=== PATIENT | male | born 1970 | race Caucasian/White ===

== ENCOUNTER 2020-07-13 10:02 | Day surgery (SDC) | payer BC ==
[2020-07-11 15:04] VITALS: BMI 26.2
[~2020-07-13 10:02] MED LIST: LACTATED RINGERS 1,000 ML IV SCH
[2020-07-13] MEDS ORDERED: LIDOCAINE 1% (10MG/ML) FOR IV START INTRADERMA ONE (10:30)
[2020-07-13 10:36] VITALS: RESP 16; TEMP 98
[2020-07-13] MEDS ORDERED: PROPOFOL 10 MG/ML 20 ML VIAL IV ONE (10:41)
--- NOTE | 2020-07-13 10:43 | P.GSHP ---
History of Present Illness H&P Date: 07/13/20 49-year-old male presents today for screening colonoscopy. He has not had a colonoscopy previously. Denies any blood in stool. Denies any family history of colon cancer. - Review of Systems All systems: negative Past Medical History Past Medical History: Hyperlipidemia History of Any Multi-Drug Resistant Organisms: None Reported Past Surgical History: No Surgical Hx Reported Past Anesthesia/Blood Transfusion Reactions: No Reported Reaction Smoking Status: Never smoker - Past Family History Mother Family Medical History: No Reported History Medications and Allergies Home Medications Medication Instructions Recorded Confirmed Type Ergocalciferol [Vitamin D2 (1250 1,250 mcg PO MO 07/11/20 07/11/20 History Mcg = 97908 Iu)] Rosuvastatin Calcium 10 mg PO MO 07/11/20 07/11/20 History Allergies Allergy/AdvReac Type Severity Reaction Status Date / Time Penicillins Allergy Unknown Verified 07/13/20 10:13 Childhood Surgical - Exam Osteopathic Statement: *. No significant issues noted on an osteopathic structural exam other than those noted in the History and Physical/Consult. Vital Signs Temp Pulse Resp BP Pulse Ox 98.0 F 73 16 133/76 97 07/13/20 10:25 07/13/20 10:25 07/13/20 10:25 07/13/20 10:25 07/13/20 10:25 - General well nourished, no distress - Eyes normal ocular movement - ENT no hearing loss - Neck trachea midline - Respiratory normal respiratory effort - Abdomen Abdomen: soft Assessment and Plan Plan: 49-year-old male presents for screen colonoscopy. Risks, benefits and alternatives were provided to the patient. He did provide consent prior to attending the endoscopy suite.
--- NOTE | 2020-07-13 11:06 | P.PCN ---
Date of Procedure: 07/13/20 Preoperative Diagnosis: Screening Postoperative Diagnosis: Rectal polyp Procedure(s) Performed: Colonoscopy with hot snare polypectomy Anesthesia: MAC Surgeon: Denise Alexander Pathology: other (Rectal polyp) Condition: stable Disposition: same day Indications for Procedure: 49-year-old male presents today for screening colonoscopy. Denies any history of blood in his stool and denies any family history of colon cancer. He has never had a colonoscopy. Risks, benefits and alternatives were provided to the patient. He did provide consent prior to attending the endoscopy suite Operative Findings: Rectal polyp Description of Procedure: The patient was brought into the endoscopy suite. He was then placed in left lateral decubitus position and adequate sedation was achieved using conscious sedation. A digital rectal exam was performed and mild internal hemorrhoids were palpated. An endoscope was then placed in the rectum and advanced to the cecum as identified by landmarks including the appendiceal orifice and the ileocecal valve. The prep was good. The colonoscope was then slowly withdrawn, examining for any mucosal abnormalities. The cecum, ascending, transverse, descending and sigmoid colon were visualized adequately. There were no large neoplastic lesions throughout the colon. A small polyp was noted in the rectum. This was removed with hot snare polypectomy. There was no evidence of diverticulosis. Retroflexion was performed in the rectum and internal hemorrhoids were visible. Excess air was removed, the colonoscope withdrawn and the procedure terminated. The patient was then transferred to the recovery unit in stable condition. Repeat colonoscopy should be performed in 5 years.
[2020-07-13 11:26] VITALS: BP 121/82; PULSE 67
== END 2020-07-13 11:38 | disposition home or self-care (01) ==
LOC: ORWHC2ENDO 10:02
PROVIDERS: ATTEND Surgery
DX: Z12.11 Encounter for screening for malignant neoplasm of colon (principal); K62.1 Rectal polyp; K64.8 Other hemorrhoids; E78.5 Hyperlipidemia, unspecified; Z88.0 Allergy status to penicillin; Z79.899 Other long term (current) drug therapy
CPT/HCPCS: 88305; 45385; J2704

== ENCOUNTER → 2021-04-16 | Outpatient (CLI) | payer BC | END | disposition home or self-care (01) | LOC: LABPRL 10:10 → EDSTATUS 13:21 | PROVIDERS: ATTEND Internal Medicine Infectious Disease | DX: U07.1 COVID-19 (principal) | CPT/HCPCS: 87635 ==

== ENCOUNTER 2023-10-20 10:44 | Day surgery (SDC) | payer BC ==
[2023-10-20 11:55] VITALS: PULSE 70; TEMP 97.8
[2023-10-20] MEDS: LACTATED RINGERS 1,000 ML IV SCH (11:56)
[2023-10-20] MEDS ORDERED: PROPOFOL 10 MG/ML 20 ML VIAL IV ONE (12:19)
--- NOTE | 2023-10-20 12:25 | P.GSHP ---
History of Present Illness H&P Date: 10/20/23 Chief Complaint: Colon cancer screening 52-year-old male here for colonoscopy. Last colonoscopy 3 to 5 years ago. He had a hyperplastic polyp at the time. No family history of colon cancer. No bowel complaints Past Medical History Past Medical History: Hyperlipidemia, Liver Disease Additional Past Medical History / Comment(s): elevated liver levels not requiring meds in past History of Any Multi-Drug Resistant Organisms: None Reported Past Surgical History: No Surgical Hx Reported Additional Past Surgical History / Comment(s): colonscopy Past Anesthesia/Blood Transfusion Reactions: No Reported Reaction Smoking Status: Never smoker - Past Family History Mother Family Medical History: No Reported History Medications and Allergies Home Medications Medication Instructions Recorded Confirmed Type Ergocalciferol [Vitamin D2 (1250 1,250 mcg PO MO 07/11/20 10/20/23 History Mcg = 95850 Iu)] Rosuvastatin Calcium 10 mg PO MO 07/11/20 10/20/23 History Finesteride 1 tab PO DAILY 10/13/23 10/20/23 History Allergies Allergy/AdvReac Type Severity Reaction Status Date / Time Penicillins Allergy Unknown Verified 10/20/23 11:40 Childhood Surgical - Exam Vital Signs Temp Pulse Resp BP Pulse Ox 97.8 F 70 16 111/76 98 10/20/23 11:52 10/20/23 11:52 10/20/23 11:52 10/20/23 11:52 10/20/23 11:52 Physical exam: General: Well-developed, well-nourished HEENT: Normocephalic, sclerae nonicteric Abdomen: Nontender, nondistended Extremities: No edema Neuro: Alert and oriented Assessment and Plan (1) Colon cancer screening Narrative/Plan: Will proceed with colonoscopy at this time. Current Visit: Yes Status: Acute Code(s): Z12.11 - ENCOUNTER FOR SCREENING FOR MALIGNANT NEOPLASM OF COLON SNOMED Code(s): 453619732
--- NOTE | 2023-10-20 12:35 | P.PCN ---
Date of Procedure: 10/20/23 Procedure(s) Performed: PREOPERATIVE DIAGNOSIS: Colon cancer screening, history of polyps POSTOPERATIVE DIAGNOSIS: Diverticulosis PROCEDURE: Colonoscopy ANESTHESIA: MAC SURGEON: Minh Abreu M.D. SPECIMENS: None ENDOSCOPIC PROCEDURE: The patient was placed on the endoscopy table in the left decubitus position. The Olympus colonoscope was inserted into the anus and passed under direct visualization to the base of the cecum. The appendiceal orifice was visualized. From that point the scope was slowly withdrawn inspecting all surfaces carefully. There were no neoplastic inflammatory or polypoid lesions throughout the cecum, ascending, transverse, descending, sigmoid and rectum. There was mild left-sided diverticulosis noted. Digital rectal examination was normal. The patient was taken to the recovery room in stable condition per anesthesia guidelines. RECOMMENDATIONS: Resume diet. Repeat colonoscopy in 10 years.
[2023-10-20 12:51] VITALS: BP 108/56; RESP 17
== END 2023-10-20 13:07 | disposition home or self-care (01) ==
LOC: ORWHC2ENDO 10:44
PROVIDERS: ATTEND Surgery
DX: Z12.11 Encounter for screening for malignant neoplasm of colon (principal); K57.30 Diverticulosis of large intestine without perforation or abscess without bleeding; E78.5 Hyperlipidemia, unspecified; Z88.0 Allergy status to penicillin; Z79.899 Other long term (current) drug therapy
CPT/HCPCS: 45378; J2704